=== PATIENT | female | born 1935 | race Caucasian/White ===

== ENCOUNTER 2022-12-09 01:42 | Inpatient (IN) ==
--- NOTE | 2022-12-09 01:52 | Emergency Department Note ---
Impression & Plan Closed hip fracture ADMIT ED Provider Note HPI: History obtained from bedside RN per EMS report. The patient is a 87-year-old female who presents emergency department after an unwitnessed fall at [facility]. On arrival here to the ED the patient is complaining of left hip pain. Per EMS reports she also hit her head. On arrival here to the ED the patient is alert, she is in mild distress secondary to pain in the area of her left hip, she is otherwise hemodynamically stable on arrival. ROS: - Per HPI Differential Diagnosis: Hip fracture, intracranial injury to include skull fracture, epidural hematoma, subdural hematoma, rib fractures, pneumothorax, hemothorax, amongst other potential pathologies. *Outpatient medications and allergy history reviewed. *Pertinent external medical records reviewed PE: General: Alert, frail-appearing HEENT: Normocephalic, trachea midline Eyes: Extraocular eye movement is intact, no scleral erythema Pulmonary: Clear to auscultation bilaterally, no wheezing Cardio: Regular rate and rhythm GI: Abdomen is soft to palpation : No suprapubic tenderness MSK: Left lower extremity slightly internally rotated and shortened, range of motion is severely limited at the left hip secondary to pain Skin: No evidence of rash Neuro: Alert, no focal deficits Psychiatric: Cooperative INDEPENDENT INTERPRETATIONS: playground monitor: (As interpreted by myself): - An order was placed for continuous cardiac monitoring - Patient was noted to be in sinus rhythm with a rate of 100 EKG: (As interpreted by myself): Rate: 105 Rhythm: Sinus tachycardia Intervals: Within normal limits ST changes: No ST elevation Time: 0156 Interventions provided in ED: -IV morphine, IV Zofran Medical Decision Making: Shortly after the patient arrived IV was established and lab work ordered, patient was placed on panel monitor. Lab work shows no leukocytosis, hemoglobin is normal, platelet count is normal, CMP does not show any critical findings, urinalysis does not show any evidence of infection. EKG per my interpretation shows sinus rhythm without any acute ischemic changes. CT imaging of the head was obtained and per my interpretation does not show any obvious intracranial hemorrhage. Official read by stat rad radiology is still pending at the time of admission. X-ray imaging of the hip per my own interpretation shows evidence of a left- sided hip fracture. X-ray imaging of the chest per my own interpretation does not show any evidence of any pneumothorax or hemothorax or obvious rib fractures. Patient was given IV morphine and IV Zofran for pain, she has a palpable dorsalis pedis pulse in the left lower extremity. Case was discussed with Dr. Willett of the hospitalist service, routine consultation was placed for orthopedics for the patient to be evaluated for operative repair. Patient is in agreement for admission. No contact information for any family members is in the patient's chart for update. Patient was placed for admission in stable condition. Consultants/Discussions held with other healthcare providers: -Hospitalist, Dr. Willett Diagnosis: 1. Hip fracture, left-sided, acute, closed 2. Unwitnessed fall Disposition: Admission Baltazar Hough DO Emergency Medicine Past Med/Surg History Social History Smoking Status: Never smoker Feels Safe at Home: Yes Allergies Allergies Allergy/AdvReac Type Severity Reaction Status Date / Time iodine Allergy Intermediate HIVES Verified 04/27/22 22:29 Quinolones Allergy Intermediate HIVES Verified 04/27/22 22:29 cefuroxime Allergy Unknown ON Verified 04/27/22 22:29 HEARTHSIDE MED LIST ciprofloxacin Allergy Unknown ON Verified 04/27/22 22:29 HEARTHSIDE MED LIST citalopram [From Celexa] Allergy Unknown ON Verified 04/27/22 22:29 HEARTHSIDE MED LIST Iodinated Contrast Media Allergy Unknown ON Verified 04/27/22 22:29 HEARTIDE MED LIST Home Meds Home Medications Medication Instructions Recorded Confirmed acetaminophen 325 mg tablet 650 mg PO Q6H PRN PAIN/FEVER > 101 04/27/22 04/27/22 (Tylenol) melatonin 3 mg tablet 6 mg PO HS 04/27/22 04/27/22 metoprolol succinate 25 mg 25 mg PO QAM 04/27/22 04/27/22 tablet,extended release 24 hr mirtazapine 30 mg tablet 30 mg PO HS 04/27/22 04/27/22 olanzapine 2.5 mg tablet 2.5 mg PO BID 04/27/22 04/27/22 polyethylene glycol 3350 17 17 g PO QAM 04/27/22 04/27/22 gram/dose oral powder (Miralax) Results & Data (ED) Vital Signs Vital Signs - 24 hr 12/09/22 01:50 12/09/22 01:58 Temperature 36.7 C Temperature Source Oral Pulse Rate 105 H Respiratory Rate 16 Respiratory Effort / Characteristics Non-Labored Spontaneous Respiratory Depth Normal Respiratory Pattern Regular Blood Pressure 140/103 H Blood Pressure Mean 115 Pulse Oximetry 94 98 Oxygen Delivery Method Room Air Room Air Sepsis Recent Fever Within 48 Hours No Sepsis New/Unexplained Change in Mental Status No Sepsis Action Taken by Nursing No Action Required Laboratory Data 12/09/22 02:18 12/09/22 02:18 Lab Results 12/09/22 12/09/22 12/09/22 Range/Units 02:18 02:18 02:18 WBC 7.43 (4.8-10.8) K/ul RBC 4.20 (4.20-5.40) M/uL Hgb 12.4 (12.0-16.0) g/dl Hct 38.4 (37.0-47.0) % MCV 91.4 (80.0-100.0) fL MCH 29.5 (25.0-34.0) pg MCHC 32.3 (32.0-36.0) g/dL RDW Std Deviation 42.5 (36.4-46.3) fL RDW Coeff of Tracy 12.8 (11.5-14.5) % Plt Count 211 (130-400) K/uL MPV 10.5 (9.4-12.4) fL Immature Gran % (Auto) 0.4 % Neut % (Auto) 66.9 % Lymph % (Auto) 24.4 % Barton % (Auto) 7.5 % Eos % (Auto) 0.3 % Baso % (Auto) 0.5 % Neut # (Auto) 4.97 (1.40-6.50) K/uL Lymph # (Auto) 1.81 (1.20-3.40) K/uL Barton # (Auto) 0.56 (0.11-0.59) K/uL Eos # (Auto) 0.02 (0.00-0.50) K/uL Baso # (Auto) 0.04 (0.00-0.20) K/uL Immature Gran # (Auto) 0.03 (0.01-0.20) K/uL PT 10.7 (9.0-12.0) Seconds INR 1.0 (0.9-1.1) Sodium 140 (136-145) mmol/L Potassium 3.7 (3.5-5.1) mmol/L Chloride 105 (98-107) mmol/L Carbon Dioxide 29 (21-32) mmol/L Anion Gap 6 (3-11) BUN 21 (6-23) mg/dl Creatinine 0.68 (0.6-1.2) mg/dl Est Cr Clr Drug Dosing 51.3 ml/min Est GFR ( Amer) 91.8 ml/min Est GFR (Non-Af Amer) 79.2 ml/min BUN/Creatinine Ratio 30.9 H (10-20) Glucose 125 H (70-99(Fasting)) mg/dl Calcium 9.8 (8.6-10.3) mg/dl Total Bilirubin 0.5 (0.2-1.0) mg/dl AST 15 (13-39) U/L ALT 13 (7-52) U/L Alkaline Phosphatase 80 (34-104) U/L Total Protein 6.9 (6.0-8.3) gm/dl Albumin 4.0 (3.4-5.0) gm/dl Globulin 2.9 (2.5-4.0) gm/dl Albumin/Globulin Ratio 1.4 (0.9-2) Lipase 32 (11-82) U/L Urine Color Urine Appearance (Clear) Urine pH (4.5-7.5) Ur Specific [place] (1.000-1.030) Urine Protein (Negative) Urine Glucose (UA) (Negative) Urine Ketones (Negative) Urine Blood (Negative) Urine Nitrite (Negative) Urine Bilirubin (Negative) Urine Urobilinogen (Negative) Ur Leukocyte Esterase (Negative) SARS-CoV-2, RNA, NAAT (NEGATIVE) 12/09/22 12/09/22 Range/Units 02:18 02:18 WBC (4.8-10.8) K/ul RBC (4.20-5.40) M/uL Hgb (12.0-16.0) g/dl Hct (37.0-47.0) % MCV (80.0-100.0) fL MCH (25.0-34.0) pg MCHC (32.0-36.0) g/dL RDW Std Deviation (36.4-46.3) fL RDW Coeff of Tracy (11.5-14.5) % Plt Count (130-400) K/uL MPV (9.4-12.4) fL Immature Gran % (Auto) % Neut % (Auto) % Lymph % (Auto) % Barton % (Auto) % Eos % (Auto) % Baso % (Auto) % Neut # (Auto) (1.40-6.50) K/uL Lymph # (Auto) (1.20-3.40) K/uL Barton # (Auto) (0.11-0.59) K/uL Eos # (Auto) (0.00-0.50) K/uL Baso # (Auto) (0.00-0.20) K/uL Immature Gran # (Auto) (0.01-0.20) K/uL PT (9.0-12.0) Seconds INR (0.9-1.1) Sodium (136-145) mmol/L Potassium (3.5-5.1) mmol/L Chloride (98-107) mmol/L Carbon Dioxide (21-32) mmol/L Anion Gap (3-11) BUN (6-23) mg/dl Creatinine (0.6-1.2) mg/dl Est Cr Clr Drug Dosing ml/min Est GFR ( Amer) ml/min Est GFR (Non-Af Amer) ml/min BUN/Creatinine Ratio (10-20) Glucose (70-99(Fasting)) mg/dl Calcium (8.6-10.3) mg/dl Total Bilirubin (0.2-1.0) mg/dl AST (13-39) U/L ALT (7-52) U/L Alkaline Phosphatase (34-104) U/L Total Protein (6.0-8.3) gm/dl Albumin (3.4-5.0) gm/dl Globulin (2.5-4.0) gm/dl Albumin/Globulin Ratio (0.9-2) Lipase (11-82) U/L Urine Color Yellow Urine Appearance Clear (Clear) Urine pH 6.5 (4.5-7.5) Ur Specific [place] 1.015 (1.000-1.030) Urine Protein Negative (Negative) Urine Glucose (UA) Negative (Negative) Urine Ketones Negative (Negative) Urine Blood Negative (Negative) Urine Nitrite Negative (Negative) Urine Bilirubin Negative (Negative) Urine Urobilinogen Negative (Negative) Ur Leukocyte Esterase Negative (Negative) SARS-CoV-2, RNA, NAAT NEGATIVE (NEGATIVE) Administered Medications Discontinued Medications Morphine Sulfate (Morphine Sulfate 4 Mg/Ml 1 Ml Carp\Vial) 4 mg IV NOW STA Stop: 12/09/22 02:45 Last Admin: 12/09/22 03:02 Dose: 4 mg Documented By: FREDRICK Ondansetron HCl (Ondansetron Inj 2 Mg/Ml 2 Ml Vial) 4 mg IV NOW STA Stop: 12/09/22 02:45 Last Admin: 12/09/22 03:02 Dose: 4 mg Documented By: FREDRICK Discharge Plan Visit Data Chief Complaint: Fall Stated Complaint: Fall, Hip Pain ED Provider: Baltazar Hough Discharge Problem: Closed hip fracture Forms Stand Alone Forms: [facility] Prescriptions Prescriptions: No Action acetaminophen [Tylenol] 325 mg Tablet 650 mg PO Q6H MDD 3 GRAMS/24 HOURS PRN (Reason: PAIN/FEVER > 101) melatonin 3 mg Tablet 6 mg PO HS olanzapine 2.5 mg Tablet 2.5 mg PO BID Rx Instructions: TAKES AT 0800 & 1600 mirtazapine 30 mg Tablet 30 mg PO HS metoprolol succinate 25 mg Tablet Extended Release 24 Hr 25 mg PO QAM polyethylene glycol 3350 [Miralax] 17 gram/dose Powder 17 g PO QAM Referrals Referrals: Neris Broussard [Primary Care Provider] -
[2022-12-09 02:38] LABS: Appearance Urine Clear (Clear); Bilirubin Urine Negative (Negative); Blood Urine Negative (Negative); Color Urine Yellow; Glucose Urine UA Negative (Negative); Ketones Urine Negative (Negative); Leukocyte Esterase Urine Negative (Negative); Nitrite Urine Negative (Negative); Protein Urine Negative (Negative); Specific Gravity Urine 1.015 (1.000-1.030); Urobilinogen Urine Negative (Negative); pH Urine 6.5 (4.5-7.5)
[2022-12-09] MEDS ORDERED: MoRPHine SULFATE 4 MG/ML 1 ML CARP\\VIAL IV STA (02:44)
[2022-12-09] MEDS ORDERED: ONDANSETRON INJ 2 MG/ML 2 ML VIAL IV STA (02:44)
[2022-12-09 02:50] LABS: Basophils # (auto) 0.04 K/uL (0.00-0.20); Basophils % (auto) 0.5 %; Eosinophils # (auto) 0.02 K/uL (0.00-0.50); Eosinophils % (auto) 0.3 %; Hematocrit (blood only) 38.4 % (37.0-47.0); Hemoglobin 12.4 g/dl (12.0-16.0); Immature Granulocytes # (auto) 0.03 K/uL (0.01-0.20); Immature Granulocytes % (auto) 0.4 %; Lymphocytes # (auto) 1.81 K/uL (1.20-3.40); Lymphocytes % (auto) 24.4 %; Mean Corpuscular Hemoglobin 29.5 pg (25.0-34.0); Mean Corpuscular Hgb Conc 32.3 g/dL (32.0-36.0); Mean Corpuscular Volume 91.4 fL (80.0-100.0); Mean Platelet Volume 10.5 fL (9.4-12.4); Monocytes # (auto) 0.56 K/uL (0.11-0.59); Monocytes % (auto) 7.5 %; Neutrophils # (auto) 4.97 K/uL (1.40-6.50); Neutrophils % (auto) 66.9 %; Platelet Count 211 K/uL (130-400); RDW Coefficient of Variation 12.8 % (11.5-14.5); RDW Standard Deviation 42.5 fL (36.4-46.3); White Blood Count 7.43 K/ul (4.8-10.8)
[2022-12-09 03:00] LABS: Albumin Globulin Ratio 1.4 (0.9-2); BUN Creatinine Ratio 30.9 (10-20); Bilirubin,Total 0.5 mg/dl (0.2-1.0); Calcium 9.8 mg/dl (8.6-10.3); Creatinine Clr Calc Pharmacy 51.3 ml/min; Est GFR (African American) 91.8 ml/min; Est GFR (Non-African American) 79.2 ml/min; Globulin 2.9 gm/dl (2.5-4.0); Potassium 3.7 mmol/L (3.5-5.1); Total Protein 6.9 gm/dl (6.0-8.3)
[2022-12-09 03:20] LABS: Prothrombin Time 10.7 Seconds (9.0-12.0)
--- NOTE | 2022-12-09 03:41 | History & Physical Report ---
Date of Service December 09, 2022 Assessment & Plan (1) Closed left hip fracture: (2) Hypertension: (3) Tachycardia: (4) Dementia: (5) Agitation: (6) Insomnia: (7) Constipation: Plan Closed left hip fracture- Patient had an unwitnessed fall at [facility]domo catheter placed Acetaminophen 1 g IV every 8 hours as needed for mild pain or fever Morphine sulfate 4 mg IV every 3 hours as needed for moderate pain Dilaudid 0.25 mg IV every 3 hours as needed for severe pain Zofran 4 mg IV every 6 hours as needed NSS + KCl 20 mEq at 80 mils per hour Consult orthopedic surgery Hypertension/tachycardia- Continue metoprolol succinate 25 mg every morning Dementia/agitation/insomnia- Resume mirtazapine, olanzapine and melatonin postsurgery If needed, can use Zyprexa 5 mg IM at bedtime as needed History of Present Illness Chief Complaint: The patient is referred to the emergency department from her residence at [facility], after an unwitnessed fall, which she complained of left hip pain and was noted to have hit her head as well. The patient has significant dementia, and is not able to contribute significantly to her HPI or review of systems Primary Care Provider: [facility] The patient is a 87-year-old female with a past medical history including hypertension, dementia, agitation, insomnia and constipation. As noted above, she cannot contribute significantly to her HPI or review of systems. Per report from [facility] where she lives, she had an unwitnessed fall where she injured her left hip and hit her head. X-rays in the emergency department showed a closed left hip fracture. CT head shows usual age-related atrophy, without acute bleeding Significant laboratories: COVID-19 negative, glucose 125, and urinalysis negative From the ED patient received the following: Morphine sulfate 4 mg IV, and Zofran 4 mg IV Allergies Allergy/AdvReac Type Severity Reaction Status Date / Time iodine Allergy Intermediate HIVES Verified 04/27/22 22:29 Quinolones Allergy Intermediate HIVES Verified 04/27/22 22:29 cefuroxime Allergy Unknown ON Verified 04/27/22 22:29 HEARTIDE MED LIST ciprofloxacin Allergy Unknown ON Verified 04/27/22 22:29 [facility] MED LIST citalopram [From Celexa] Allergy Unknown ON Verified 04/27/22 22:29 HEARTIDE MED LIST Iodinated Contrast Media Allergy Unknown ON Verified 04/27/22 22:29 HEARTIDE MED LIST Home Medications Medication Instructions Recorded Confirmed Type acetaminophen 325 mg tablet 650 mg PO Q6H PRN PAIN/FEVER > 101 04/27/22 04/27/22 History (Tylenol) melatonin 3 mg tablet 6 mg PO HS 04/27/22 04/27/22 History metoprolol succinate 25 mg 25 mg PO QAM 04/27/22 04/27/22 History tablet,extended release 24 hr mirtazapine 30 mg tablet 30 mg PO HS 04/27/22 04/27/22 History olanzapine 2.5 mg tablet 2.5 mg PO BID 04/27/22 04/27/22 History polyethylene glycol 3350 17 17 g PO QAM 04/27/22 04/27/22 History gram/dose oral powder (Miralax) Past Med/Surg History Medical History (Updated 12/09/22 @ 04:22 by Christoph Willett MD) Agitation Constipation Dementia Hypertension Insomnia Social History Smoking Status: Never smoker Feels Safe at Home: Yes Review of Systems Review of Systems: Review of systems is severely limited due to patient's dementia Physical Exam Physical Exam: The patient is awake, is able to respond somewhat to questions, but has no memory of the events of today, lying in bed and in no acute distress. HEENT--PERRL, EOMI, mucous membranes and oropharynx mildly dry. Neck--supple. No JVD. No bruits. Thyroid normal, trachea midline, no adenopathy. Heart--normal S1 and S2. No murmurs, rubs or gallops. Lungs--clear bilaterally, no respiratory distress, no accessory muscle use. Abdomen--normal bowel sounds and soft. Nontender. Nondistended, no hernias or masses, no organomegaly. Extremities--no cyanosis or clubbing. No edema. Dermatologic--normal skin turgor, normal color, no abnormal lymph nodes, no rash. Neurologic--cranial nerves II through XII grossly intact. Rheumatologic--limited examination due to left hip pain Psychiatric--cooperative. Results & Data Results & Data Vital Signs (Past 12 Hours) Vital Signs Temp Pulse Resp BP Pulse Ox O2 Del Method 12/09/22 01:58 98 Room Air 12/09/22 01:50 36.7 C 105 H 16 140/103 H 94 Room Air Laboratory Results Laboratory Results WBC 7.43 K/ul (4.8-10.8) 12/09/22 02:18 RBC 4.20 M/uL (4.20-5.40) 12/09/22 02:18 Hgb 12.4 g/dl (12.0-16.0) 12/09/22 02:18 Hct 38.4 % (37.0-47.0) 12/09/22 02:18 MCV 91.4 fL (80.0-100.0) 12/09/22 02:18 MCH 29.5 pg (25.0-34.0) 12/09/22 02:18 MCHC 32.3 g/dL (32.0-36.0) 12/09/22 02:18 RDW Std Deviation 42.5 fL (36.4-46.3) 12/09/22 02:18 RDW Coeff of Tracy 12.8 % (11.5-14.5) 12/09/22 02:18 Plt Count 211 K/uL (130-400) 12/09/22 02:18 MPV 10.5 fL (9.4-12.4) 12/09/22 02:18 Immature Gran % (Auto) 0.4 % 12/09/22 02:18 Neut % (Auto) 66.9 % 12/09/22 02:18 Lymph % (Auto) 24.4 % 12/09/22 02:18 [place] % (Auto) 7.5 % 12/09/22 02:18 Eos % (Auto) 0.3 % 12/09/22 02:18 Baso % (Auto) 0.5 % 12/09/22 02:18 Neut # (Auto) 4.97 K/uL (1.40-6.50) 12/09/22 02:18 Lymph # (Auto) 1.81 K/uL (1.20-3.40) 12/09/22 02:18 [place] # (Auto) 0.56 K/uL (0.11-0.59) 12/09/22 02:18 Eos # (Auto) 0.02 K/uL (0.00-0.50) 12/09/22 02:18 Baso # (Auto) 0.04 K/uL (0.00-0.20) 12/09/22 02:18 Immature Gran # (Auto) 0.03 K/uL (0.01-0.20) 12/09/22 02:18 PT 10.7 Seconds (9.0-12.0) 12/09/22 02:18 INR 1.0 (0.9-1.1) 12/09/22 02:18 Sodium 140 mmol/L (136-145) 12/09/22 02:18 Potassium 3.7 mmol/L (3.5-5.1) 12/09/22 02:18 Chloride 105 mmol/L (98-107) 12/09/22 02:18 Carbon Dioxide 29 mmol/L (21-32) 12/09/22 02:18 Anion Gap 6 (3-11) 12/09/22 02:18 BUN 21 mg/dl (6-23) 12/09/22 02:18 Creatinine 0.68 mg/dl (0.6-1.2) 12/09/22 02:18 Est Cr Clr Drug Dosing 51.3 ml/min 12/09/22 02:18 Est GFR ( Amer) 91.8 ml/min 12/09/22 02:18 Est GFR (Non-Af Amer) 79.2 ml/min 12/09/22 02:18 BUN/Creatinine Ratio 30.9 (10-20) H 12/09/22 02:18 Glucose 125 mg/dl (70-99(Fasting)) H 12/09/22 02:18 Calcium 9.8 mg/dl (8.6-10.3) 12/09/22 02:18 Total Bilirubin 0.5 mg/dl (0.2-1.0) 12/09/22 02:18 AST 15 U/L (13-39) 12/09/22 02:18 ALT 13 U/L (7-52) 12/09/22 02:18 Alkaline Phosphatase 80 U/L (34-104) 12/09/22 02:18 Total Protein 6.9 gm/dl (6.0-8.3) 12/09/22 02:18 Albumin 4.0 gm/dl (3.4-5.0) 12/09/22 02:18 Globulin 2.9 gm/dl (2.5-4.0) 12/09/22 02:18 Albumin/Globulin Ratio 1.4 (0.9-2) 12/09/22 02:18 Lipase 32 U/L (11-82) 12/09/22 02:18 Urine Color Yellow 12/09/22 02:18 Urine Appearance Clear (Clear) 12/09/22 02:18 Urine pH 6.5 (4.5-7.5) 12/09/22 02:18 Ur Specific [place] 1.015 (1.000-1.030) 12/09/22 02:18 Urine Protein Negative (Negative) 12/09/22 02:18 Urine Glucose (UA) Negative (Negative) 12/09/22 02:18 Urine Ketones Negative (Negative) 12/09/22 02:18 Urine Blood Negative (Negative) 12/09/22 02:18 Urine Nitrite Negative (Negative) 12/09/22 02:18 Urine Bilirubin Negative (Negative) 12/09/22 02:18 Urine Urobilinogen Negative (Negative) 12/09/22 02:18 Ur Leukocyte Esterase Negative (Negative) 12/09/22 02:18 SARS-CoV-2, RNA, NAAT NEGATIVE (NEGATIVE) 12/09/22 02:18 Code Status & VTE Plan Code Status Patient will need to be full code if to undergo surgery, this will need to be verified when family is able to be reached during the day VTE Prophylaxis Plan VTE Prophylaxis will be ordered: Yes PG Care Time/CCT Total # of Minutes Spent Total Time Spent with Patient: Total time spent is greater than 50% in coordination of care (as documented) at patient's floor/unit and/or counseling patient: Coding Level of Care Code 71322 INT INP/OBS CARE 3/75MIN Diagnoses Closed left hip fracture S72.002A Hypertension I10 Tachycardia R00.0 Dementia F03.90 Agitation R45.1 Insomnia G47.00 Constipation K59.00
[2022-12-09] MEDS ORDERED: HYDROmorphone INJ 0.5 MG/0.5 ML SYR IV PRN ×2 (03:55→07:01)
--- NOTE | 2022-12-09 05:44 | CT Scan Report ---
Exam(s): CT HEAD Without Contrast EXAM: CT Head Without Intravenous Contrast CLINICAL HISTORY: Reason for exam: Fall. TECHNIQUE: Axial computed tomography images of the head/brain without intravenous contrast. CTDI is 37.76 mGy and DLP is 625.8 mGy-cm. Automated exposure control was utilized for the study. A dose lowering technique was utilized adhering to the principles of ALARA. COMPARISON: No relevant prior studies available. FINDINGS: Brain: No acute intracranial abnormality. Consider MRI if there is further concern. Areas of decreased attenuation in the deep cerebral white matter are consistent with small vessel ischemic/degenerative changes. The cerebral and cerebellar sulci are prominent consistent with brain atrophy. No hemorrhage. Ventricles: Unremarkable. No ventriculomegaly. Bones/joints: Unremarkable. No acute fracture. Soft tissues: Unremarkable. Vasculature: Atherosclerotic disease. Sinuses: Unremarkable as visualized. Mastoid air cells: Unremarkable as visualized. No mastoid effusion. Orbits: Bilateral lens replacements. IMPRESSION: 1. No acute intracranial abnormality. Consider MRI if there is further concern. 2. Small vessel ischemic/degenerative changes. 3. Cerebral and cerebellar atrophy. Electronically signed by: Joe Regan MD 12/09/22 05:43 AM
[2022-12-09] MEDS ORDERED: bisacodyL 10 MG SUPP PR PRN (07:01)
[2022-12-09] MEDS ORDERED: NALOXONE HCL 0.4 MG/1 ML VIAL/CARP IV PRN (07:01)
[2022-12-09] MEDS ORDERED: MAGNESIUM HYDROXIDE SUSP 30 ML UDC PO PRN (07:01)
[2022-12-09] MEDS ORDERED: ONDANSETRON INJ 2 MG/ML 2 ML VIAL IV PRN (07:01)
--- NOTE | 2022-12-09 08:06 | XRay Report ---
XR hip STEFAN 2v w pelvis CLINICAL HISTORY: L hip pain COMPARISON STUDY: None. FINDINGS: No acute fracture or dislocation within the pelvis or right hip. There is a large rectal st ool ball noted. There is a comminuted and mildly displaced intertrochanteric fracture within the prox imal left femur. No dislocation. IMPRESSION: Comminuted and mildly displaced intertrochanteric fracture within the proximal left femu r. ACT 112: Negative or not required by law. Electronically signed by: Roman Tilley M.D. 12/09/2022 8:04 AM
--- NOTE | 2022-12-09 08:08 | XRay Report ---
XR chest 1V portable HISTORY: fall COMPARISON: Chest 04/27/2022. FINDINGS: No pneumothorax. No pleural effusions. Slightly rotated study. No focal lung consolidations to suggest a pneumonia. No evidence for pulmonary edema. The cardiac silhouette is top normal in siz e. There is a tortuous thoracic aorta. 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 IMPRESSION: No significant change compared to the prior study. No acute process. ACT 112: Negative or not required by law. Electronically signed by: Roman Tilley M.D. 12/09/2022 8:07 AM
[2022-12-09] MEDS: NSS + 20MEQ KCL 20 MEQ/1,000 ML BAG IV SCH ×2 (08:14→21:57)
[2022-12-09] MEDS: ACETAMINOPHEN 1000 MG/100 ML IV IV PRN (08:14)
[2022-12-09] MEDS: METOPROLOL SUCC 25MG EXT REL TAB PO SCH ×2 (10:55→18:33)
--- NOTE | 2022-12-09 14:47 | Electrocardiogram Report ---
Test Reason : Blood Pressure : / mmHG Vent. Rate : 105 BPM Atrial Rate : 105 BPM P-R Int : 144 ms QRS Dur : 072 ms QT Int : 342 ms P-R-T Axes : 072 066 095 degrees QTc Int : 452 ms Sinus tachycardia Otherwise normal ECG When compared with ECG of 27-APR-2022 21:50, Premature supraventricular complexes are no longer Present Non-specific change in ST segment in Inferior leads Nonspecific T wave abnormality no longer evident in Inferior leads Nonspecific T wave abnormality, improved in Anterolateral leads Confirmed by Adrien Kirby ([id number]) on 12/09/2022 2:46:39 PM Referred By: [facility] Confirmed By:Adrien Kirby
[2022-12-09] MEDS: MoRPHine SULFATE 4 MG/ML 1 ML CARP\\VIAL IV PRN ×2 (15:03→18:23)
--- NOTE | 2022-12-09 16:24 | Anesthesiology Consultation ---
Date of Service December 09, 2022 Assessment & Plan (1) Encounter for pre-operative examination: Chart Review Chart Review: Acceptable Risk for Surgery and Patient NOT seen in Pre Admission Testing Son: Romel Kat [phone] Consults Requested none History Surgery Operation Date: 12/10/22 08:50 Proposed Procedures p Left Hip Trochanteric Femoral Nail - Denver Kearns, Height/Weight Height: 5 ft 4 in Weight: 55.5 kg Allergies Allergy/AdvReac Type Severity Reaction Status Date / Time iodine Allergy Intermediate HIVES Verified 04/27/22 22:29 Quinolones Allergy Intermediate HIVES Verified 04/27/22 22:29 cefuroxime Allergy Unknown ON Verified 04/27/22 22:29 HEARTHSIDE MED LIST ciprofloxacin Allergy Unknown ON Verified 04/27/22 22:29 HEARTHSIDE MED LIST citalopram [From Celexa] Allergy Unknown ON Verified 04/27/22 22:29 HEARTHSIDE MED LIST Iodinated Contrast Media Allergy Unknown ON Verified 04/27/22 22:29 HEARTHSIDE MED LIST Medications Home Medications Medication Instructions Recorded Confirmed Last Taken acetaminophen 325 mg tablet 650 mg PO Q6H PRN PAIN/FEVER > 101 04/27/22 12/09/22 04/27/22 08:29 (Tylenol) melatonin 3 mg tablet 6 mg PO HS 04/27/22 12/09/22 12/08/22 21:00 metoprolol succinate 25 mg 25 mg PO QAM 04/27/22 12/09/22 12/08/22 08:00 tablet,extended release 24 hr mirtazapine 30 mg tablet 30 mg PO HS 04/27/22 12/09/22 12/08/22 21:00 olanzapine 2.5 mg tablet 5 mg PO DAILY 04/27/22 12/09/22 12/08/22 09:00 polyethylene glycol 3350 17 17 g PO QAM 04/27/22 12/09/22 12/08/22 09:00 gram/dose oral powder (Miralax) Milk of Magnesia 30 ml PO DAILY PRN Constipation 12/09/22 12/09/22 Unknown acetaminophen 325 mg tablet 650 mg PO Q12H 12/09/22 12/09/22 12/08/22 20:00 [id number] bisacodyl 10 mg rectal suppository 10 mg [place] DAILY PRN Constipation 12/09/22 12/09/22 Unknown (Dulcolax (bisacodyl)) fluticasone propionate 50 2 spray intranasal HS 12/09/22 12/09/22 12/08/22 20:20 mcg/actuation nasal spray,suspension mineral oil 118 ml [place] DAILY PRN Constipation 12/09/22 12/09/22 Unknown olanzapine 2.5 mg tablet (Zyprexa) 2.5 mg PO DAILY 12/09/22 12/09/22 12/08/22 13:00 olanzapine 7.5 mg tablet (Zyprexa) 7.5 mg PO HS 12/09/22 12/09/22 12/08/22 21:00 Active Medications Generic Name Dose Route Start Last Admin Trade Name Freq PRN Reason Stop Dose Admin Acetaminophen 1,000 mg 12/09/22 07:01 12/09/22 08:14 Acetaminophen 1000 Mg/100 Ml Iv IV 12/12/22 07:00 1,000 mg Q8H PRN Administration Pain or Fever Hydromorphone HCl 0.25 mg 12/09/22 03:55 12/09/22 05:48 Hydromorphone Inj 0.5 Mg/0.5 Ml Syr IV 12/23/22 03:54 0.25 mg Q3H PRN Administration Severe Pain (Scale 7, 8, 9,10) Potassium Chloride/Sodium Chloride 20 meq in 1,000 mls @ 80 mls/hr 12/09/22 07:01 12/09/22 08:14 Normal Saline W/20 Meq Kcl IV 01/08/23 07:00 80 mls/hr .[id number] KATHY Administration Metoprolol Succinate 25 mg 12/09/22 09:00 12/09/22 10:55 Metoprolol Succ 25mg Ext Rel Tab PO 01/08/23 08:59 Not Given QAM KATHY Morphine Sulfate 4 mg 12/09/22 07:01 12/09/22 15:03 Morphine Sulfate 4 Mg/Ml 1 Ml Carp\Vial IV 12/23/22 07:00 4 mg Q3H PRN Administration Moderate Pain (Scale 4, 5, 6) Ondansetron HCl 4 mg 12/09/22 07:01 12/09/22 15:02 Ondansetron Inj 2 Mg/Ml 2 Ml Vial IV 01/08/23 07:00 4 mg Q6H PRN Administration Nausea Past Medical History Medical History (Updated 12/09/22 @ 16:22 by Connor Boyer MD) Agitation Constipation Dementia Encounter for pre-operative examination Hypertension Insomnia Chief Complaint: The patient is referred to the emergency department from her residence at [facility], after an unwitnessed fall, which she complained of left hip pain and was noted to have hit her head as well. The patient has significant dementia, and is not able to contribute significantly to her HPI or review of systems Primary Care Provider: [facility] The patient is a 87-year-old female with a past medical history including hy pertension, dementia, agitation, insomnia and constipation. As noted above, she cannot contribute significantly to her HPI or review of systems. Per report from [facility] where she lives, she had an unwitnessed fall where she injured her left hip and hit her head. X-rays in the emergency department showed a closed left hip fracture. CT head shows usual age-related atrophy, without acute bleeding Significant laboratories: COVID-19 negative, glucose 125, and urinalysis negative Social History Smoking Status: Never smoker Hx Alcohol Use: No Hx Substance Use: No Physical Exam Vital Signs Last Vital Signs Temp 36.5 C 12/09/22 11:18 Pulse 88 12/09/22 11:18 Resp 22 12/09/22 11:18 BP 106/64 12/09/22 11:18 Pulse Ox 95 12/09/22 11:18 O2 Del Method Room Air 12/09/22 11:18 Testing Laboratory Results 12/09/22 02:18 12/09/22 02:18 PT 10.7 Seconds (9.0-12.0) 12/09/22 02:18 INR 1.0 (0.9-1.1) 12/09/22 02:18 Urine Color Yellow 12/09/22 02:18 Urine Appearance Clear (Clear) 12/09/22 02:18 Urine pH 6.5 (4.5-7.5) 12/09/22 02:18 Ur Specific [place] 1.015 (1.000-1.030) 12/09/22 02:18 Urine Protein Negative (Negative) 12/09/22 02:18 Urine Glucose (UA) Negative (Negative) 12/09/22 02:18 Urine Ketones Negative (Negative) 12/09/22 02:18 Urine Nitrite Negative (Negative) 12/09/22 02:18 Ur Leukocyte Esterase Negative (Negative) 12/09/22 02:18 Blood Type O Positive 12/09/22 07:33 Antibody Screen NEGATIVE 12/09/22 07:33 Electrocardiogram Date: 12/09/22 DICTATED BY:Adrien Kirby MD Test Reason : Blood Pressure : / mmHG Vent. Rate : 105 BPM Atrial Rate : 105 BPM P-R Int : 144 ms QRS Dur : 072 ms QT Int : 342 ms P-R-T Axes : 072 066 095 degrees QTc Int : 452 ms Sinus tachycardia Otherwise normal ECG When compared with ECG of 27-APR-2022 21:50, Premature supraventricular complexes are no longer Present Non-specific change in ST segment in Inferior leads Nonspecific T wave abnormality no longer evident in Inferior leads Nonspecific T wave abnormality, improved in Anterolateral leads Confirmed by Adrien Kirby ([id number]) on 12/09/2022 2:46:39 PM Chest X-Ray Date: 12/09/22 XR chest 1V portable HISTORY: fall COMPARISON: Chest 04/27/2022. FINDINGS: No pneumothorax. No pleural effusions. Slightly rotated study. No focal lung consolidations to suggest a pneumonia. No evidence for pulmonary edema. The cardiac silhouette is top normal in size. There is a tortuous thoracic aorta. 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 IMPRESSION: No significant change compared to the prior study. No acute process.
--- NOTE | 2022-12-09 17:21 | Hospitalist Progress Note ---
Date of Service December 09, 2022 Assessment & Plan (1) Closed left hip fracture: Plan: Closed left hip fracture- Patient had an unwitnessed fall at [facility] Perdomo catheter placed Acetaminophen 1 g IV every 8 hours as needed for mild pain or fever Morphine sulfate 4 mg IV every 3 hours as needed for moderate pain Dilaudid 0.25 mg IV every 3 hours as needed for severe pain Zofran 4 mg IV every 6 hours as needed NSS + KCl 20 mEq at 80 mils per hour Consult orthopedic surgery plans for orthopedic repair on 12/10/2022 (2) Hypertension: Plan: Certainly hypertension is worse and pain is uncontrolled. Typically takes metoprolol succinate will substitute tartrate at this time (3) Dementia: Plan: Dementia with agitation Resume mirtazapine, olanzapine and melatonin postsurgery If needed, can use Zyprexa 5 mg IM at bedtime as needed (4) Constipation: Plan: Caution with surgery we will institute bowel regimen at this time Plan Orthopedic DVT prevention postoperatively will be exploited Admission and Anticipated Discharge Date Admission Date: December 09, 2022 Subjective Patient is comfortable when pain becomes tachycardic. She is lying flat has no complaints of chest pain although does have some memory issues and is not short of breath. Physical Exam Physical Exam: Her exam is tachycardic but regular there is a systolic murmur lungs are clear at the bases. Her hip is tender to examination but she is good distal capillary refill Results & Data Results & Data Vital Signs (Past 12 Hours) Vital Signs Temp Pulse Pulse Resp BP Pulse Ox O2 Del Method 12/09/22 16:51 99.7 F H 119 H 16 153/72 H 95 Room Air 12/09/22 11:18 97.7 F 88 22 106/64 95 Room Air 12/09/22 08:00 101 H 16 135/85 95 Room Air 12/09/22 07:41 117 H 12/09/22 05:39 110 H Laboratory Results Reviewed CBC reviewed chemistry reviewed EKG PG Care Time/CCT Total # of Minutes Spent Total Time Spent with Patient: Total time spent is greater than 50% in coordination of care (as documented) at patient's floor/unit and/or counseling patient: Coding Level of Care Code 80645 SUB INP/OBS CARE 2/35MIN Diagnoses Closed left hip fracture S72.002A Hypertension I10 Dementia F03.90 Constipation K59.00
[2022-12-09] MEDS ORDERED: METOPROLOL TARTRATE 25 MG TAB PO ONE (17:22)
[2022-12-09] MEDS: DOCUSATE SODIUM/SENNA 50/8.6MG TAB PO SCH (20:04)
[2022-12-10] MEDS: ACETAMINOPHEN 1000 MG/100 ML IV IV PRN ×2 (05:56→17:13)
[2022-12-10 06:00] LABS: Basophils # (auto) 0.02 K/uL (0.00-0.20); Basophils % (auto) 0.3 %; Eosinophils # (auto) 0.01 K/uL (0.00-0.50); Eosinophils % (auto) 0.1 %; Hematocrit (blood only) 31.8 % (37.0-47.0); Hemoglobin 10.1 g/dl (12.0-16.0); Immature Granulocytes # (auto) 0.02 K/uL (0.01-0.20); Immature Granulocytes % (auto) 0.3 %; Lymphocytes # (auto) 1.22 K/uL (1.20-3.40); Lymphocytes % (auto) 16.9 %; Mean Corpuscular Hemoglobin 29.5 pg (25.0-34.0); Mean Corpuscular Hgb Conc 31.8 g/dL (32.0-36.0); Mean Platelet Volume 10.2 fL (9.4-12.4); Monocytes # (auto) 0.66 K/uL (0.11-0.59); Monocytes % (auto) 9.2 %; Neutrophils # (auto) 5.27 K/uL (1.40-6.50); Neutrophils % (auto) 73.2 %; Platelet Count 169 K/uL (130-400); RDW Coefficient of Variation 12.9 % (11.5-14.5); RDW Standard Deviation 44.4 fL (36.4-46.3); Red Blood Count 3.42 M/uL (4.20-5.40)
[2022-12-10] MEDS ORDERED: VANCOMYCIN HCL 750 MG in SODIUM CHLORIDE 0.9% 250 ML IV SCH (06:00)
[2022-12-10] MEDS ORDERED: VANCOMYCIN HCL 750 MG in SODIUM CHLORIDE 0.9% 500 ML IV SCH (06:00)
[2022-12-10 06:12] LABS: Albumin Globulin Ratio 1.4 (0.9-2); Albumin Level 3.3 gm/dl (3.4-5.0); BUN Creatinine Ratio 26.7 (10-20); Bilirubin,Total 0.5 mg/dl (0.2-1.0); Calcium 8.9 mg/dl (8.6-10.3); Creatinine Clr Calc Pharmacy 48.5 ml/min; Est GFR (African American) 95.7 ml/min; Est GFR (Non-African American) 82.5 ml/min; Globulin 2.3 gm/dl (2.5-4.0); Magnesium 2.2 mg/dl (1.7-2.4); Potassium 4.1 mmol/L (3.5-5.1); Total Protein 5.6 gm/dl (6.0-8.3)
[2022-12-10] MEDS: DOCUSATE SODIUM/SENNA 50/8.6MG TAB PO SCH ×2 (08:56→20:36)
[2022-12-10] MEDS: NSS + 20MEQ KCL 20 MEQ/1,000 ML BAG IV SCH (09:49)
--- NOTE | 2022-12-10 11:37 | History & Physical Bridge Note ---
Date of Service December 10, 2022 History & Physical Bridge Note I have examined the patient, reviewed the History & Physical and in the interval since the performance of the History & Physical I have noted the following changes of clinical significance: no changes noted. I had a discussion with the son regarding risk benefits potential complications of left hip cephalomedullary nail to treat the intertrochanteric femur fracture. These risks include but are not limited to: Infection, neurovascular injury, DVT, nonunion, malunion and need for future surgery. After reviewing these he elected to proceed with surgical intervention and telephone consent was obtained.
[2022-12-10] MEDS ORDERED: fentaNYL citrate PF 100 MCG/2 ML VIAL ONE (11:42)
[2022-12-10] MEDS ORDERED: PROPOFOL IV EMULSION 10 MG/ML 20 ML VIAL IV ONE (11:44)
[2022-12-10] MEDS ORDERED: ROCURONIUM BROMIDE 10 MG/ML 5 ML VIAL IV ONE ×5 (11:44→12:54)
[2022-12-10] MEDS ORDERED: DEXAMETHASONE SOD INJ 4 MG/ML VIAL ONE ×2 (11:45→12:53)
[2022-12-10] MEDS ORDERED: GLYCOPYRROLATE 0.2 MG/ML VIAL ONE (11:45)
[2022-12-10] MEDS ORDERED: NEOSTIGMINE METHYLSULFATE 1 MG/ML 10ML VIAL ONE (11:45)
[2022-12-10] MEDS ORDERED: ONDANSETRON INJ 2 MG/ML 2 ML VIAL ONE (11:45)
[2022-12-10] MEDS ORDERED: BUPIVACAINE 0.25% PF 30 ML VIAL ONE (12:20)
[2022-12-10] MEDS ORDERED: ceFAZolin 330 MG/ML 1 GM VIAL ONE (12:33)
[2022-12-10] MEDS ORDERED: PHENYLEPHRINE HCL 10 MG/ML VIAL ONE (12:54)
[2022-12-10] MEDS ORDERED: ceFAZolin 2000MG 2,000 MG/15 ML SYR IV ONE (12:58)
[2022-12-10] MEDS ORDERED: SUGAMMADEX SODIUM 200 MG/2 ML VIAL IV ONE (13:08)
--- NOTE | 2022-12-10 13:20 | Post Operative Brief Note ---
Immediate Post Op Note v1 Date of Surgery December 10, 2022 Pre & Post Diagnosis Operation Date: 12/10/22 08:50 Pre-Op Diagnosis: Closed left hip fracture Post-Op Diagnosis: Closed left hip fracture I identified the patient and participated in the time-out.: Yes Procedure Operation Date: 12/10/22 08:50 Actual Procedures p Left Hip Cephalomedullary Nail(Left) - Denver Kearns DO Surgeon Denver Kearns DO Money Counter none Estimated Blood Loss 75 Findings Consistent with Post-Op Diagnosis see dictation Complications none
--- NOTE | 2022-12-10 13:26 | Orthopedic Consultation ---
Date of Consultation December 10, 2022 Assessment & Plan (1) Closed left hip fracture: Nonweightbearing left lower extremity Pain control Hold DVT prophylaxis for OR Medical management Plan for or for left hip cephalomedullary nail History of Present Illness Reason for Consultation: Left intertrochanteric femur fracture Attending Physician: Rigo Trinh MD History of Present Illness 87-year-old female presenting after sustaining an unwitnessed fall with a chief complaint of left hip pain. In the emergency department radiographs were obtained demonstrating displaced left intertrochanteric femur fracture. Patient was admitted to medical service and orthopedics was consulted for operative management Allergies Allergy/AdvReac Type Severity Reaction Status Date / Time iodine Allergy Intermediate HIVES Verified 04/27/22 22:29 Quinolones Allergy Intermediate HIVES Verified 04/27/22 22:29 cefuroxime Allergy Unknown ON Verified 04/27/22 22:29 HEARTHSIDE MED LIST ciprofloxacin Allergy Unknown ON Verified 04/27/22 22:29 HEARTHSIDE MED LIST citalopram [From Celexa] Allergy Unknown ON Verified 04/27/22 22:29 HEARTHSIDE MED LIST Iodinated Contrast Media Allergy Unknown ON Verified 04/27/22 22:29 HEARTHSIDE MED LIST Home Medications Medication Instructions Recorded Confirmed Type acetaminophen 325 mg tablet 650 mg PO Q6H PRN PAIN/FEVER > 101 04/27/22 12/09/22 History (Tylenol) melatonin 3 mg tablet 6 mg PO HS 04/27/22 12/09/22 History metoprolol succinate 25 mg 25 mg PO QAM 04/27/22 12/09/22 History tablet,extended release 24 hr mirtazapine 30 mg tablet 30 mg PO HS 04/27/22 12/09/22 History olanzapine 2.5 mg tablet 5 mg PO DAILY 04/27/22 12/09/22 History polyethylene glycol 3350 17 17 g PO QAM 04/27/22 12/09/22 History gram/dose oral powder (Miralax) Milk of Magnesia 30 ml PO DAILY PRN Constipation 12/09/22 12/09/22 History acetaminophen 325 mg tablet 650 mg PO Q12H 12/09/22 12/09/22 History bisacodyl 10 mg rectal suppository 10 mg IN DAILY PRN Constipation 12/09/22 12/09/22 History (Dulcolax (bisacodyl)) fluticasone propionate 50 2 spray intranasal HS 12/09/22 12/09/22 History mcg/actuation nasal spray,suspension mineral oil 118 ml [place] DAILY PRN Constipation 12/09/22 12/09/22 History olanzapine 2.5 mg tablet (Zyprexa) 2.5 mg PO DAILY 12/09/22 12/09/22 History olanzapine 7.5 mg tablet (Zyprexa) 7.5 mg PO HS 12/09/22 12/09/22 History Patient History Medical History (Updated 12/09/22 @ 16:22 by Connor Boyer MD) Agitation Constipation Dementia Encounter for pre-operative examination Hypertension Insomnia Social History Smoking Status: Never smoker Hx Alcohol Use: No Hx Substance Use: No Preferred Language: Mozamb[place] Communication Ability: Impaired Brace End [employer] Former Required: No Beliefs That Will Affect Care: None Current Living Situation: Half-Way Current Living Situation Comment: [facility] Other Information That Helps Us Care for You: No Feels Safe at Home: Yes Safety Concerns: Feels Safe At This Time Physical Exam Constitutional: No acute distress, resting comfortably in bed, oriented to self only Musculoskeletal: Left lower extremity Positive logroll, Neuromuscular exam limited secondary to patient mental status. Does spontaneously move left foot Palpable dorsalis pedis and posterior tibial pulses with brisk capillary refill Results & Data Vital Signs (Past 12 Hours) Vital Signs Temp Pulse Pulse Resp BP Pulse Ox Pulse Ox 12/10/22 11:57 37.3 C 101 H 16 107/64 93 12/10/22 09:59 12/10/22 09:08 37.4 C 102 H 16 107/62 92 12/10/22 07:01 95 12/10/22 07:33 110 H 12/10/22 04:20 37.6 C H 110 H 20 117/63 91 O2 Del Method O2 Del Method 12/10/22 11:57 Room Air 12/10/22 09:59 Room Air 12/10/22 09:08 Room Air 12/10/22 07:01 Room Air 12/10/22 07:33 12/10/22 04:20 Room Air Diagnostic Findings Radiographs of the left hip demonstrate displaced left intertrochanteric femur fracture
--- NOTE | 2022-12-10 13:29 | Operative Report ---
Post Operative Report Pre & Post Diagnosis Operation Date: 12/10/22 08:50 Pre-Op Diagnosis: Closed left hip fracture Post-Op Diagnosis: Closed left hip fracture I identified the patient and participated in the time-out.: Yes Procedure Operation Date: 12/10/22 08:50 Actual Procedures p Left Hip Cephalomedullary Nail(Left) - Denver Kearns DO Surgeon Denver Kearns DO Trestle Builder none Estimated Blood Loss 75 Findings Consistent with Post-Op Diagnosis See dictation Specimens None Complications None Indications 87-year-old female presenting after sustaining an unwitnessed fall. In the emergency department is found to have displaced left intertrochanteric femur fracture. Patient was admitted to medical service and orthopedics was consulted for surgical management. I did discussion with the patient's son regarding risk benefits potential complications of left hip cephalomedullary nail for her displaced intertrochanteric femur fracture. After reviewing these he elected to proceed with surgical intervention and telephone consent was obtained. Description of Procedure Implants: Synthes TFN a 10 mm x 235 mm 130 degree, 100 mm fenestrated lag screw, 5 mm x 34 mm locking screw Procedure: Patient was appropriately marked and identified in the preoperative holding area. She received antibiotics per protocol. She was taken back to the operative suite where she received general anesthesia. She was then transitioned over to the manual fracture table. Using the assistance of C-arm fluoroscopy her fracture was reduced to a satisfactory position. Patient was then prepped and draped in the standard orthopedic fashion and timeout was then performed. 3 cm incision just superior to the tip of the trochanter was then made with a scalpel through the skin subcutaneous tissue and deep fascia. A threaded guidewire was then inserted into the tip of the trochanter advanced into the medullary canal. Position was confirmed on AP and lateral fluoroscopy. Canal opening reamer was then used. A 10 mm x 235 mm nail was then inserted. Proximal outrigger was then attached. Incision was then made through the skin subcutaneous tissue and IT band fascia for the lag screw. Guide was then inserted down to the lateral cortex. A threaded guidewire was then then advanced through the lateral cortex into the femoral head and a center center position just beneath the subchondral bone. Length was then measured. Lateral cortical reamer was then used to open the lateral cortex followed by a tapered reamer set to 100 mm. A 100 mm fenestrated screw was then inserted and the nail was then compressed and locked statically at the proximal aspect. Attention was then turned to the distal interlock. Incision was made through skin subcutaneous tissue and IT band fascia. Drill was then used to drill bicortically and a 5 mm x 34 mm locking screw was then inserted. Proximal outrigger was then removed. Final radiographs were obtained demonstrating satisfactory positioning of the implant as well as reduction of the fracture. Wounds were then irrigated using normal saline solution. 30 cc of local anesthetic was then injected into the incision sites and subcutaneous tissue. Deep fascia was closed using 0 Vicryl followed by 2-0 Vicryl for subcutaneous tissue and maria luisa for skin. Sterile dressing of Adaptic 4 x 4 and Tegaderm was then applied. Patient tolerated procedure well was taken recovery room in hemodynamically stable condition. I attest to the content of the Intraoperative Record and any orders documented therein. Any exceptions are noted below.
[2022-12-10] MEDS ORDERED: ONDANSETRON INJ 2 MG/ML 2 ML VIAL IV PRN (13:38)
[2022-12-10] MEDS ORDERED: fentaNYL citrate PF 100 MCG/2 ML VIAL IV PRN (13:38)
[2022-12-10] MEDS ORDERED: ePHEDrine sulfate 50 MG/ML AMP IV PRN (13:38)
[2022-12-10] MEDS ORDERED: HYDROmorphone INJ 2 MG/ML SYR/VIAL IV PRN (13:38)
[2022-12-10] MEDS ORDERED: ATROPINE SULFATE 0.1 MG/ML 10ML SYR IV PRN (13:38)
[2022-12-10] MEDS ORDERED: PROMETHAZINE HCL 12.5 MG in SODIUM CHLORIDE 0.9% 50 ML IV PRN (13:38)
[2022-12-10] MEDS: SODIUM CHLORIDE 0.9% 1,000 ML IV SCH (14:31)
--- NOTE | 2022-12-10 14:31 | Anesthesiology Progress Note ---
Date of Service December 10, 2022 Anesthesia Post Procedure Vital Signs Vital Signs: Temp Pulse Pulse Pulse Resp BP Pulse Ox 12/10/22 14:27 36.7 C 110 H 18 139/79 95 12/10/22 14:10 111 H 15 140/84 96 12/10/22 13:50 109 H 15 139/92 99 12/10/22 14:00 36.7 C 99 H 16 142/89 H 98 12/10/22 13:40 109 H 16 148/80 H 100 12/10/22 13:30 36.5 C 108 H 12 137/88 100 12/10/22 11:57 37.3 C 101 H 16 107/64 93 12/10/22 09:59 12/10/22 09:08 37.4 C 102 H 16 107/62 92 12/10/22 07:01 12/10/22 07:33 110 H 12/10/22 04:20 37.6 C H 110 H 20 117/63 91 12/09/22 23:30 36.7 C 110 H 20 116/64 91 12/10/22 00:37 12/09/22 22:03 109 H 12/09/22 19:58 36.7 C 114 H 20 139/74 93 12/09/22 19:19 118 H 12/09/22 16:51 37.6 C H 119 H 16 153/72 H 95 Pulse Ox O2 Del Method O2 Del Method O2 Flow Rate 12/10/22 14:27 Oxymask 2 12/10/22 14:10 Oxymask 2 12/10/22 13:50 Oxymask 2 12/10/22 14:00 Oxymask 2 12/10/22 13:40 Oxymask 4 12/10/22 13:30 Oxymask 6 12/10/22 11:57 Room Air 12/10/22 09:59 Room Air 12/10/22 09:08 Room Air 12/10/22 07:01 95 Room Air 12/10/22 07:33 12/10/22 04:20 Room Air 12/09/22 23:30 Room Air 12/10/22 00:37 Room Air 12/09/22 22:03 12/09/22 19:58 Room Air 12/09/22 19:19 12/09/22 16:51 Room Air Pain Intensity Left Hip: Pain Intensity: 8 Transfer of Care Handoff Completed per policy Notes Mental Status: alert / awake / arousable and participated in evaluation Patient Amnestic to Procedure: Yes Nausea / Vomiting: adequately controlled Pain: adequately controlled Airway Patency, RR, SpO2: stable & adequate BP & HR: stable & adequate Hydration State: stable & adequate Anesthetic Complications: no major complications apparent
--- NOTE | 2022-12-10 17:17 | Hospitalist Progress Note ---
Date of Service December 10, 2022 Assessment & Plan (1) Closed left hip fracture: Plan: Closed left hip fracture- Patient had an unwitnessed fall at [facility] Operating room repair of left hip cephalomedullary nail 12/10/2022 Dr. Kearns Acetaminophen 1 g IV every 8 hours as needed for mild pain or fever Morphine sulfate 4 mg IV every 3 hours as needed for moderate pain Dilaudid 0.25 mg IV every 3 hours as needed for severe pain Zofran 4 mg IV every 6 hours as needed Additional 1 L crystalloid post procedure (2) Hypertension: Plan: Certainly hypertension is worse and pain is uncontrolled. Typically takes metoprolol succinate (3) Dementia: Plan: Dementia with agitation Resume mirtazapine, olanzapine and melatonin postsurgery If needed, can use Zyprexa 5 mg IM at bedtime as needed (4) Constipation: Plan: Caution with surgery we will institute bowel regimen at this time Plan Orthopedic DVT prevention postoperatively will be exploited Admission and Anticipated Discharge Date Admission Date: December 09, 2022 Subjective Patient is much more awake and alert although she is not oriented Has hip pain on her left hip to examination with shortening and rotation good capillary refill is present Physical Exam 2 Physical Exam: Her exam is tachycardic but regular review of EKG on the morning of 1013 shows sinus rhythm with tachycardia. There is a systolic murmur lungs are clear at the bases. Her hip is tender to examination but she is good distal capillary refill Results & Data Results & Data Vital Signs (Past 12 Hours) Vital Signs Temp Pulse Pulse Pulse Resp BP Pulse Ox 12/10/22 16:05 114 H 12/10/22 15:12 98.1 F 110 H 17 124/68 95 12/10/22 14:27 98.1 F 110 H 18 139/79 95 12/10/22 14:10 111 H 15 140/84 96 12/10/22 13:50 109 H 15 139/92 99 12/10/22 14:00 98.1 F 99 H 16 142/89 H 98 12/10/22 13:40 109 H 16 148/80 H 100 12/10/22 13:30 97.7 F 108 H 12 137/88 100 12/10/22 11:57 99.1 F 101 H 16 107/64 93 12/10/22 09:59 12/10/22 09:08 99.3 F 102 H 16 107/62 92 12/10/22 07:01 12/10/22 07:33 110 H Pulse Ox O2 Del Method O2 Del Method O2 Flow Rate 12/10/22 16:05 12/10/22 15:12 Oxymask 2 12/10/22 14:27 Oxymask 2 12/10/22 14:10 Oxymask 2 12/10/22 13:50 Oxymask 2 12/10/22 14:00 Oxymask 2 12/10/22 13:40 Oxymask 4 12/10/22 13:30 Oxymask 6 12/10/22 11:57 Room Air 12/10/22 09:59 Room Air 12/10/22 09:08 Room Air 12/10/22 07:01 95 Room Air 12/10/22 07:33 Laboratory Results Reviewed CBC, reviewed coagulation studies, reviewed chemistry PG Care Time/CCT Total # of Minutes Spent Total Time Spent with Patient: Total time spent is greater than 50% in coordination of care (as documented) at patient's floor/unit and/or counseling patient: Coding Level of Care Code 70425 SUB INP/OBS CARE 2/35MIN Diagnoses Closed left hip fracture S72.002A Hypertension I10 Dementia F03.90 Constipation K59.00
[2022-12-10] MEDS: MoRPHine SULFATE 4 MG/ML 1 ML CARP\\VIAL IV PRN (20:20)
[2022-12-10] MEDS: ASPIRIN 81 MG ECTAB PO SCH (20:36)
--- NOTE | 2022-12-10 20:37 | Fluoroscopy Report ---
FL hip LT 2-3V CLINICAL HISTORY: LEFT TROCHNAIL TECHNIQUE: 4 views were obtained with the C-arm in the OR with the above procedure. Total fluoroscopy time was 16.4 seconds. Radiation dose was 8.67 mGy. Comparison: Comparison is made to hip radiograph 12/09/2022 FINDINGS/IMPRESSION: Intraoperative images were obtained of left trochanteric nail placement. Please correlate with intraoperative fluoroscopy and operative report. ACT 112: Negative or not required by law. Electronically signed by: Neptali Rios M.D. 12/10/2022 8:35 PM
[2022-12-10] MEDS: ceFAZolin 2000MG 2,000 MG/15 ML SYR IV SCH (20:45)
[2022-12-10] MEDS ORDERED: diphenhydrAMINE Capsule 25 MG CAP PO ONE (23:01)
[2022-12-10] MEDS ORDERED: MELATONIN 3 MG TAB PO PRN (23:01)
[2022-12-11] MEDS: MoRPHine SULFATE 4 MG/ML 1 ML CARP\\VIAL IV PRN (02:40)
[2022-12-11] MEDS: SODIUM CHLORIDE 0.9% 1,000 ML IV SCH (04:00)
[2022-12-11] MEDS: ceFAZolin 2000MG 2,000 MG/15 ML SYR IV SCH (05:36)
[2022-12-11 06:37] LABS: Basophils # (auto) 0.01 K/uL (0.00-0.20); Basophils % (auto) 0.1 %; Eosinophils # (auto) 0.01 K/uL (0.00-0.50); Eosinophils % (auto) 0.1 %; Hematocrit (blood only) 28.8 % (37.0-47.0); Hemoglobin 9.3 g/dl (12.0-16.0); Immature Granulocytes # (auto) 0.03 K/uL (0.01-0.20); Immature Granulocytes % (auto) 0.3 %; Lymphocytes # (auto) 2.09 K/uL (1.20-3.40); Lymphocytes % (auto) 20.3 %; Mean Corpuscular Hemoglobin 29.8 pg (25.0-34.0); Mean Corpuscular Hgb Conc 32.3 g/dL (32.0-36.0); Mean Corpuscular Volume 92.3 fL (80.0-100.0); Mean Platelet Volume 10.6 fL (9.4-12.4); Monocytes # (auto) 1.06 K/uL (0.11-0.59); Monocytes % (auto) 10.3 %; Neutrophils % (auto) 68.9 %; Platelet Count 185 K/uL (130-400); RDW Coefficient of Variation 13.1 % (11.5-14.5); RDW Standard Deviation 43.7 fL (36.4-46.3); Red Blood Count 3.12 M/uL (4.20-5.40)
[2022-12-11 07:02] LABS: Albumin Globulin Ratio 1.3 (0.9-2); Albumin Level 3.2 gm/dl (3.4-5.0); BUN Creatinine Ratio 41.1 (10-20); Bilirubin,Total 0.4 mg/dl (0.2-1.0); Calcium 8.8 mg/dl (8.6-10.3); Creatinine Clr Calc Pharmacy 53.7 ml/min; Est GFR (African American) 97.9 ml/min; Est GFR (Non-African American) 84.4 ml/min; Globulin 2.4 gm/dl (2.5-4.0); Magnesium 2.1 mg/dl (1.7-2.4); Total Protein 5.6 gm/dl (6.0-8.3)
[2022-12-11 07:24] LABS: Partial Thromboplastin Time 27.3 Seconds (21.0-31.0); Prothrombin Time 11.1 Seconds (9.0-12.0)
--- NOTE | 2022-12-11 07:24 | Hospitalist Progress Note ---
Date of Service December 11, 2022 Assessment & Plan (1) Closed left hip fracture: Plan: Closed left hip fracture- status post left hip cephalomedullary nail 12/10/2022 Patient had an unwitnessed fall at [facility] Multimodal pain control including parenteral opiate Acute blood loss anemia, (2) Hypertension: Plan: continues on metoprolol for blood pressure control (3) Dementia: Plan: Dementia mirtazapine, olanzapine and melatonin postsurgery If needed, can use Zyprexa 5 mg IM at bedtime as needed (4) Constipation: Plan: institute bowel regimen at this time Plan Orthopedic DVT prevention postoperatively will be exploited Admission and Anticipated Discharge Date Admission Date: December 09, 2022 Subjective patient is awake this morning she is not oriented to place. She follows commands. She is in pain with movement but pain controlled at rest Physical Exam Physical Exam: continues with occasional sinus tachycardia, no particular distress There is a systolic murmur lungs are clear at the bases. Her hip is tender to examination but she is good distal capillary refill Results & Data Results & Data Vital Signs (Past 12 Hours) Vital Signs Temp Pulse Pulse Resp BP Pulse Ox O2 Del Method 12/11/22 03:00 98.4 F 114 H 18 121/69 94 Room Air 12/11/22 01:07 Room Air 12/11/22 00:27 98.8 F 108 H 18 109/63 93 Room Air 12/10/22 21:58 105 H 12/10/22 19:30 98.8 F 113 H 16 105/66 92 Room Air Laboratory Results reviewed CBC reviewed coagulation reviewed chemistry PG Care Time/CCT Total # of Minutes Spent Total Time Spent with Patient: Total time spent is greater than 50% in coordination of care (as documented) at patient's floor/unit and/or counseling patient: Coding Level of Care Code 35876 SUB INP/OBS CARE 2/35MIN Diagnoses Closed left hip fracture S72.002A Hypertension I10 Dementia F03.90 Constipation K59.00
[2022-12-11] MEDS ORDERED: traMADol HCL 50 MG TABLET PO PRN (08:30)
--- NOTE | 2022-12-11 08:31 | Orthopedic Progress Note ---
Date of Service December 11, 2022 Assessment & Plan (1) Closed left hip fracture: Plan: -Post-op day 1 left hip cephalomedullary nail with Dr. Kearns on 12/10/22 -WBAT LLE -Pain control and medical management per primary -DVT ppx with ASA when appropriate -PT/OT Patient is stable from an orthopedic standpoint. Follow-up with Dr. Kearns in orthopedic surgery clinic in 10-14 days. Please call [facility] at [phone] to make an appointment. Admission and Anticipated Discharge Date Admission Date: December 09, 2022 Subjective Patient is POD#1 left hip cephalomedullary nail. Sitting up in bed this morning, eating breakfast. Not answering questions currently but she is following commands appropriately. Review of Systems Review of Systems: Limited secondary to history of dementia Physical Exam Physical Exam: Sitting up in bed, no acute distress Musculoskeletal: LLE: Dressing c/d/i to left hip. Compartments soft and compressible. Toes mobile, dorsi/plantarflexion intact. Sensation and d/p pulse intact Skin: Warm and dry Neurologic: Awake. Not currently answering questions but following commands appropriately Results & Data Vital Signs (Past 12 Hours) Vital Signs Temp Pulse Pulse Resp BP Pulse Ox Pulse Ox 12/11/22 07:00 95 12/11/22 07:49 117 H 12/11/22 03:00 36.9 C 114 H 18 121/69 94 12/11/22 01:07 12/11/22 00:27 37.1 C 108 H 18 109/63 93 12/10/22 21:58 105 H O2 Del Method O2 Del Method 12/11/22 07:00 Room Air 12/11/22 07:49 12/11/22 03:00 Room Air 12/11/22 01:07 Room Air 12/11/22 00:27 Room Air 12/10/22 21:58
[2022-12-11] MEDS: METOPROLOL SUCC 25MG EXT REL TAB PO SCH (08:52)
[2022-12-11] MEDS: ASPIRIN 81 MG ECTAB PO SCH ×2 (08:52→20:14)
[2022-12-11] MEDS: DOCUSATE SODIUM/SENNA 50/8.6MG TAB PO SCH ×2 (08:52→20:13)
[2022-12-11] MEDS: ACETAMINOPHEN 500 MG TAB PO SCH ×3 (08:56→20:14)
[2022-12-12] MEDS ORDERED: SODIUM CHLORIDE 0.9% 1,000 ML IV SCH ×2 (04:00→18:45)
[2022-12-12 06:32] LABS: Hematocrit (blood only) 26.5 % (37.0-47.0); Hemoglobin 8.3 g/dl (12.0-16.0); Mean Corpuscular Hemoglobin 29.4 pg (25.0-34.0); Mean Corpuscular Hgb Conc 31.3 g/dL (32.0-36.0); Mean Platelet Volume 10.6 fL (9.4-12.4); Platelet Count 153 K/uL (130-400); RDW Coefficient of Variation 13.2 % (11.5-14.5); RDW Standard Deviation 44.9 fL (36.4-46.3); Red Blood Count 2.82 M/uL (4.20-5.40); White Blood Count 6.81 K/ul (4.8-10.8)
[2022-12-12 06:51] LABS: Albumin Globulin Ratio 1.4 (0.9-2); Albumin Level 2.9 gm/dl (3.4-5.0); BUN Creatinine Ratio 54.5 (10-20); Bilirubin,Total 0.4 mg/dl (0.2-1.0); Calcium 8.3 mg/dl (8.6-10.3); Creatinine Clr Calc Pharmacy 55.1 ml/min; Est GFR (African American) 98.4 ml/min; Est GFR (Non-African American) 84.9 ml/min; Globulin 2.1 gm/dl (2.5-4.0); Potassium 3.3 mmol/L (3.5-5.1)
[2022-12-12 07:08] LABS: Partial Thromboplastin Time 27.2 Seconds (21.0-31.0)
[2022-12-12] MEDS ORDERED: MAGNESIUM SULFATE / D5W 1 GM/100 ML BAG IV ONE (07:54)
[2022-12-12] MEDS: ACETAMINOPHEN 500 MG TAB PO SCH ×3 (08:40→19:36)
[2022-12-12] MEDS: ASPIRIN 81 MG ECTAB PO SCH ×2 (08:40→19:36)
[2022-12-12] MEDS: METOPROLOL SUCC 25MG EXT REL TAB PO SCH (08:40)
[2022-12-12] MEDS: POTASSIUM CHLORIDE CRTAB 20 MEQ TABCR PO SCH ×2 (08:40→19:38)
[2022-12-12] MEDS: DOCUSATE SODIUM/SENNA 50/8.6MG TAB PO SCH (08:58)
--- NOTE | 2022-12-12 18:47 | Hospitalist Progress Note ---
Date of Service December 12, 2022 Assessment & Plan (1) Closed left hip fracture: Plan: Closed left hip fracture- status post left hip cephalomedullary nail 12/10/2022 Patient had an unwitnessed fall at [facility] Multimodal pain control including parenteral opiate Acute blood loss anemia, stable. Due to tachycardia will give additional fluids and follow anemia if need trend fusion (2) Hypertension: Plan: continues on metoprolol for blood pressure control blood pressure is low but patient has had resting tachycardia (3) Dementia: Plan: Dementia mirtazapine, olanzapine and melatonin postsurgery If needed, can use Zyprexa 5 mg IM at bedtime as needed (4) Constipation: Plan: institute bowel regimen at this time patient had diarrhea bowel regimen is stopped Plan Orthopedic DVT prevention postoperatively will be aspirin twice daily Admission and Anticipated Discharge Date Admission Date: December 09, 2022 Subjective patient is awake this morning she is not oriented to place. She follows commands. She is in pain with movement but pain controlled at rest patient has loose bowel movements likely from bowel regimen started the perioperative period patient has COVID positivity but we were informed by [facility] that she was +39 days prior this is likely a persistent positive result she has no COVID- related symptoms as diarrhea is associated with Senokot use she has persistent tachycardia she is lower blood pressure we cannot push her beta-fabi to higher rates. When checked this has been sinus tachycardia not a atrial arrhythmia Physical Exam Physical Exam: continues with occasional sinus tachycardia, no particular distress There is a systolic murmur lungs are clear at the bases. Her hip is tender to examination but she is good distal capillary refill Results & Data Results & Data Vital Signs (Past 12 Hours) Vital Signs Temp Pulse Pulse Resp BP Pulse Ox O2 Del Method 12/12/22 11:25 98.1 F 123 H 16 95/64 L 97 Room Air 12/12/22 08:35 98.8 F 113 H 16 116/66 94 Room Air 12/12/22 07:43 Room Air 12/12/22 07:31 100 H Laboratory Results received reviewed CBC reviewed chemistry PG Care Time/CCT Total # of Minutes Spent Total Time Spent with Patient: Total time spent is greater than 50% in coordination of care (as documented) at patient's floor/unit and/or counseling patient: Coding Level of Care Code 70005 SUB INP/OBS CARE 2/35MIN Diagnoses Closed left hip fracture S72.002A Hypertension I10 Dementia F03.90 Constipation K59.00
--- NOTE | 2022-12-13 06:12 | Electrocardiogram Report ---
Test Reason : Blood Pressure : / mmHG Vent. Rate : 100 BPM Atrial Rate : 100 BPM P-R Int : 154 ms QRS Dur : 078 ms QT Int : 356 ms P-R-T Axes : 054 040 059 degrees QTc Int : 459 ms Normal sinus rhythm Possible Anterior infarct , age undetermined Otherwise normal ECG When compared with ECG of 09-DEC-2022 01:56, No significant change was found Confirmed by Isaak De La Cruz ([id number]) on 12/13/2022 6:11:39 AM Referred By: [facility] Confirmed By:Isaak De La Cruz
[2022-12-13 06:28] LABS: Hematocrit (blood only) 25.1 % (37.0-47.0); Mean Corpuscular Hgb Conc 31.9 g/dL (32.0-36.0); Mean Platelet Volume 10.3 fL (9.4-12.4); Platelet Count 150 K/uL (130-400); RDW Coefficient of Variation 13.2 % (11.5-14.5); RDW Standard Deviation 44.9 fL (36.4-46.3); Red Blood Count 2.67 M/uL (4.20-5.40); White Blood Count 5.31 K/ul (4.8-10.8)
[2022-12-13 06:56] LABS: BUN Creatinine Ratio 75.8 (10-20); Calcium 8.2 mg/dl (8.6-10.3); Creatinine Clr Calc Pharmacy 91.2 ml/min; Est GFR (African American) 116.5 ml/min; Est GFR (Non-African American) 100.5 ml/min; Magnesium 2.1 mg/dl (1.7-2.4); Potassium 3.1 mmol/L (3.5-5.1)
--- NOTE | 2022-12-13 07:15 | Electrocardiogram Report ---
Test Reason : Blood Pressure : / mmHG Vent. Rate : 105 BPM Atrial Rate : 105 BPM P-R Int : 154 ms QRS Dur : 076 ms QT Int : 334 ms P-R-T Axes : 061 043 107 degrees QTc Int : 441 ms Sinus tachycardia Nonspecific ST and T wave abnormality Abnormal ECG When compared with ECG of 10-DEC-2022 08:48, (unconfirmed) Nonspecific T wave abnormality now evident in Inferior leads Nonspecific T wave abnormality now evident in Lateral leads Confirmed by Isaak De La Cruz ([id number]) on 12/13/2022 7:15:44 AM Referred By: Neris Melloarthur Confirmed By:Isaak De La Cruz
[2022-12-13 08:05] LABS: Thyroid Stimulating Hormone 0.383 uIu/ml (0.300-4.500)
[2022-12-13] MEDS: METOPROLOL SUCC 25MG EXT REL TAB PO SCH (08:20)
[2022-12-13] MEDS: ACETAMINOPHEN 500 MG TAB PO SCH ×3 (08:21→19:55)
[2022-12-13] MEDS: ASPIRIN 81 MG ECTAB PO SCH ×2 (08:23→19:59)
[2022-12-13] MEDS: POTASSIUM CHLORIDE CRTAB 20 MEQ TABCR PO SCH (08:25)
[2022-12-13] MEDS: POTASSIUM CHLORIDE / WTR 10 MEQ/100 ML PLCT IV SCH ×3 (10:19→13:18)
--- NOTE | 2022-12-13 17:09 | Hospitalist Progress Note ---
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 Due to tachycardia will give additional fluids and follow anemia hemoglobin is dropped to 8 but no need for transfusion at this time (2) Hypertension: Plan: continues on metoprolol for blood pressure control blood pressure is low but patient has had resting tachycardia (3) Dementia: Plan: Dementia mirtazapine, olanzapine and melatonin postsurgery If needed, can use Zyprexa 5 mg IM at bedtime as needed (4) Constipation: Plan: institute bowel regimen at this time patient had diarrhea bowel regimen is stopped Plan Orthopedic DVT prevention postoperatively will be aspirin twice daily Admission and Anticipated Discharge Date Admission Date: December 09, 2022 Subjective patient appears pale but she is the most talkative she has been in days. She scheduled to return to her nursing facility for ongoing convalescent care after her hip fracture repair. She is pleasantly demented Physical Exam Physical Exam: patient does appear pale and she did have acute blood loss anemia post procedure with hemoglobin 10/06/1722 of 8 she however is in no apparent distress from the anemia. Card exam is regular with a murmur lungs are clearshe is exhibiting no signs or symptoms of COVID diagnosis distal extremities with good pulses and capillary refill Results & Data Results & Data Vital Signs (Past 12 Hours) Vital Signs Temp Pulse Resp BP BP Pulse Ox O2 Del Method 12/13/22 15:20 98.2 F 89 16 120/77 95 Room Air 12/13/22 13:03 98.4 F 95 H 16 114/70 97 Room Air 12/13/22 07:57 97.5 F L 93 H 16 131/73 95 Room Air Laboratory Results reviewed CBC reviewed chemistry PG Care Time/CCT Total # of Minutes Spent Total Time Spent with Patient: Total time spent is greater than 50% in coordination of care (as documented) at patient's floor/unit and/or counseling patient: Coding Level of Care Code 62434 SUB INP/OBS CARE 2/35MIN Diagnoses Closed left hip fracture S72.002A Hypertension I10 Dementia F03.90 Constipation K59.00
[2022-12-14] MEDS: METOPROLOL SUCC 25MG EXT REL TAB PO SCH ×2 (08:37→11:20)
[2022-12-14] MEDS: ACETAMINOPHEN 500 MG TAB PO SCH (08:37)
[2022-12-14] MEDS: ASPIRIN 81 MG ECTAB PO SCH (08:38)
--- NOTE | 2022-12-14 17:48 | Discharge Summary ---
Date of Service December 14, 2022 Admission HPI Per Admitting Provider The patient is a 87-year-old female with a past medical history including hypertension, dementia, agitation, insomnia and constipation. As noted above, she cannot contribute significantly to her HPI or review of systems. Per report from [facility] where she lives, she had an unwitnessed fall where she injured her left hip and hit her head. X-rays in the emergency department showed a closed left hip fracture. CT head shows usual age-related atrophy, without acute bleeding Significant laboratories: COVID-19 negative, glucose 125, and urinalysis negative From the ED patient received the following: Morphine sulfate 4 mg IV, and Zofran 4 mg IV Principal Diagnosis Left hip fracture status postrepair on 12/10/2022 Incidental COVID test positive without symptoms Discharge Exam patient does appear pale and she did have acute blood loss anemia post procedure with hemoglobin 10/06/1722 of 8 she however is in no apparent distress from the anemia. Card exam is regular with a murmur lungs are clearshe is exhibiting no signs or symptoms of COVID diagnosis distal extremities with good pulses and capillary refill Discharge Data Allergies Allergy/AdvReac Type Severity Reaction Status Date / Time iodine Allergy Intermediate HIVES Verified 04/27/22 22:29 Quinolones Allergy Intermediate HIVES Verified 04/27/22 22:29 cefuroxime Allergy Unknown ON Verified 04/27/22 22:29 HEARTHSIDE MED LIST ciprofloxacin Allergy Unknown ON Verified 04/27/22 22:29 HEARTHSIDE MED LIST citalopram [From Celexa] Allergy Unknown ON Verified 04/27/22 22:29 HEARTIDE MED LIST Iodinated Contrast Media Allergy Unknown ON Verified 04/27/22 22:29 HEARTIDE MED LIST Consultations 12/09/22 03:41 Consult Orthopedic Surgery Routine 12/09/22 03:50 ED Decision to Admit Stat Procedures Performed Operation Date: 12/10/22 08:50 Actual Procedures p Left Hip Cephalomedullary Nail(Left) - [place] Kearns, Ordered Studies 12/09/22 01:51 CT head/brain wo con Stat 12/10/22 09:12 FL hip LT 2-3V Routine Hospital Course (1) Closed left hip fracture: Closed left hip fracture- status post left hip cephalomedullary nail 12/10/2022 Patient had an unwitnessed fall at [facility] likely osteoporotic pathological fracture from fall Patient has good pain control Aspirin twice daily for DVT prevention post procedure for at least 1 month Acute blood loss anemia, stable. Due to tachycardia will give additional fluids and follow anemia hemoglobin is dropped to 8 but no need for transfusion at this time (2) Hypertension: continues on metoprolol for blood pressure control blood pressure is low but patient has had resting tachycardia (3) Dementia: Dementia mirtazapine, olanzapine and melatonin postsurgery Plan Orthopedic DVT prevention postoperatively will be aspirin twice daily Total Time Total Time Spent Total Time Spent (In Minutes): It required greater than 30 minutes to prepare this patient for discharge Discharge Plan Discharge Items Patient Disposition: Transfer Residential Fac Reason For Visit: CLOSED LEFT HIP FRACTURE Discharge Diagnosis: left hip fracture s/p repair hypokalemia Activity: Per Instructions section Activity Comment: Per PT Non-emergency contact: Primary Care Provider and Surgeon Call non-emergency contact if: your symptoms worsen Follow-up/Referrals: Neris Broussard [Primary Care Provider] - Diet: Regular Diet Texture: Easy to Chew Chayo Attending Provider Instructions: please follow labs to assure potassium is replete Chayo [employer] Provider Instructions: Things to Watch Out For -Go to the Emergency Room if you have sudden onset of chest pain, shortness of breath, or uncontrollable pain. -Call the orthopedics clinic immediately if you have a sudden increase in the amount of wound drainage or the drainage becomes thick, yellow or green, or foul-smelling. -For routine questions regarding your hip surgery, call the orthopedics clinic at [phone] during regular business hours (8am-5pm). For urgent issues after regular business hours, you may call the clinic to be connected to the on-call physician. Dressings You may change the dressing as needed if it becomes saturated. You may clean gently around the incision site but do not completely submerge under water in the shower or tub. Weight Bearing -You may weight bear as tolerated on your operative leg. Use a walker for support and balance. Followup -You will need to follow-up with Dr. Kearns in orthopedic surgery clinic 10- 14 days after surgery. Please call [facility] at [phone] to make an appointment. Pending Studies at Discharge: No Stand-Alone Forms: My [facility] Skilled Items Patient informed of condition?: Yes DNR: No Discharge Level of Care: Skilled Communicable Disease: No Discharge Prognosis: Stable Lines: None Urinary Catheter: No Medications and DC Order Prescriptions: New aspirin 81 mg Tablet,Delayed Release (Dr/Ec) 81 mg PO BID Qty: 60 0RF tramadol 50 mg Tablet 50 mg PO Q6H PRN (Reason: pain) Qty: 30 0RF Continued acetaminophen [Tylenol] 325 mg Tablet 650 mg PO Q6H MDD 3 GRAMS/24 HOURS PRN (Reason: PAIN/FEVER > 101) melatonin 3 mg Tablet 6 mg PO HS mirtazapine 30 mg Tablet 30 mg PO HS metoprolol succinate 25 mg Tablet Extended Release 24 Hr 25 mg PO QAM polyethylene glycol 3350 [Miralax] 17 gram/dose Powder 17 g PO QAM acetaminophen 325 mg Tablet 650 mg PO Q12H mineral oil Enema 118 ml IL DAILY PRN (Reason: Constipation) Rx Instructions: 4th day with no bm discard any unused portion bisacodyl [Dulcolax (bisacodyl)] 10 mg Suppository 10 mg IL DAILY PRN (Reason: Constipation) Rx Instructions: 3rd with no bm fluticasone propionate 50 mcg/actuation [place],Suspension 2 spray INTRANASAL HS Rx Instructions: administer into each nostril Discontinued olanzapine 2.5 mg Tablet 5 mg PO DAILY olanzapine [Zyprexa] 2.5 mg Tablet 2.5 mg PO DAILY olanzapine [Zyprexa] 7.5 mg Tablet 7.5 mg PO HS Milk of Magnesia 30 ml PO DAILY PRN (Reason: Constipation) Rx Instructions: morning of 3rd day Discharge Orders: Discharge Order (Routine); Ordered 12/14/22 Ordered By: Rigo Trinh Admission Data Admit Date/Time: 12/09/22 03:41 Attending Provider: Rigo Trinh Admit Provider: Christoph Willett Primary Care Provider: Neris Broussard Other Providers: Memo Kramer ; Christoph Willett Other Interventions: Discharge Summary Assessment (RN) Last Done: 12/14/22 11:36 Coding Level of Care Code 74503 INP/OBS DISCH >30 MIN Diagnoses Closed left hip fracture S72.002A Hypertension I10 Dementia F03.90
== END 2022-12-14 12:23 | DRG 480 ==
LOC: ED 01:42 → SUATTDRO 03:41 → EDINP 03:41 → 2W 16:23